=== PATIENT | female | born 1985 | race Caucasian/White ===

== ENCOUNTER 2020-06-26 07:08 | Observation (INO) | payer MEDICAID, OTHER ==
[~2020-06-26] VITALS: Ht 152.4 cm; Wt 78.9 kg
[2020-06-26] MEDS ORDERED: LACTATED RINGERS 1,000 ML IV SCH (07:45)
[2020-06-26] MEDS: TERBUTALINE SULFATE 1MG/ML VIAL SUBCUT PRN ×2 (08:17→08:46)
[2020-06-26 08:32] LABS: CLARITY URINE CLEAR (CLEAR); COLOR URINE YELLOW (YELLOW); KETONES URINE NEGATIVE (NEGATIVE); LEUKOCYTE ESTERASE URINE TRACE (NEGATIVE); NITRITE URINE NEGATIVE (NEGATIVE); OCCULT BLOOD URINE 2+ (NEGATIVE); PH URINE 6.5 (4.5-8.0); PROTEIN URINE TRACE (NEGATIVE); SPECIFIC GRAVITY URINE 1.026 (1.005-1.030)
[2020-06-26] MEDS ORDERED: PREN-182 MT (19:36)
[2020-06-26] MEDS ORDERED: CALC600T12 PO (19:36)
[2020-06-26] MEDS ORDERED: FERR325T6 MT (19:36)
== END 2020-06-26 10:02 | disposition home or self-care (01) ==
LOC: 8 EST A/PP 07:08
PROVIDERS: ADMIT Obstetrics & Gynecology; ATTEND Obstetrics & Gynecology
DX: O62.9 Abnormality of forces of labor, unspecified (principal); O26.853 Spotting complicating pregnancy, third trimester; Z3A.37 37 weeks gestation of pregnancy
CPT/HCPCS: 59025; 81003; 96360; 96361; 96372; G0378; J3105; 99281

== ENCOUNTER 2020-06-26 18:36 | Inpatient (IN) | payer OTHER ==
[~2020-06-26] VITALS: Ht 152.4 cm; Wt 78.9 kg
[2020-06-26] MEDS ORDERED: CALC600T12 PO (19:36)
[2020-06-26] MEDS ORDERED: FERR325T6 MT (19:36)
[2020-06-26] MEDS ORDERED: PREN-182 MT (19:36)
[2020-06-26] MEDS ORDERED: LACTATED RINGERS 1,000 ML IV SCH ×2 (20:15→21:15)
[2020-06-26] MEDS: LACTATED RINGERS 1,000 ML IV SCH ×2 (21:09→21:32)
[2020-06-26 21:24] LABS: CLARITY URINE CLEAR (CLEAR); COLOR URINE YELLOW (YELLOW); KETONES URINE NEGATIVE (NEGATIVE); LEUKOCYTE ESTERASE URINE NEGATIVE (NEGATIVE); NITRITE URINE NEGATIVE (NEGATIVE); OCCULT BLOOD URINE 2+ (NEGATIVE); PH URINE 6.5 (4.5-8.0); PROTEIN URINE NEGATIVE (NEGATIVE); SPECIFIC GRAVITY URINE 1.024 (1.005-1.030)
[2020-06-26 21:25] LABS: BASOPHILS % 0.5 % (0.0-2.0); EOSINOPHILS % 0.5 % (0.0-5.0); HEMATOCRIT. 32.3 % (36.0-48.0); HEMOGLOBIN. 11.1 g/dL (12.0-16.0); LYMPHOCYTES % 20.6 % (20.0-50.0); MEAN CORPUSCULAR HEMOGLOBIN 30.3 pg (28.0-32.0); MEAN CORPUSCULAR VOLUME 88.4 fL (81.0-99.0); MEAN PLATELET VOLUME 10.1 fl (7.4-10.4); MONOCYTES % 6.2 % (2.0-8.0); NEUTROPHILS % 72.2 % (40.0-76.0); PLATELET 168 x1000/uL (130-400); RED BLOOD CELL COUNT 3.66 mill/uL (4.2-5.4)
[2020-06-26 21:34] LABS: INR 0.9; PROTHROMBIN TIME 9.4 sec (9.6-11.0)
[2020-06-26 21:35] LABS: CHLORIDE 110 mEq/L (98-107)
[2020-06-26] MEDS ORDERED: KETOROLAC 30MG/ML VIAL IV NR (23:15)
[2020-06-26] MEDS ORDERED: DIPHENHYDRAMINE 50MG/ML VIAL IV PRN (23:15)
[2020-06-26] MEDS ORDERED: METOCLOPRAMIDE HCL 10MG/2ML VIAL IV NR (23:15)
[2020-06-26] MEDS ORDERED: ACETAMINOPHEN WITH CODEINE 120-12MG/5ML UDC PO PRN (23:15)
[2020-06-26] MEDS ORDERED: CITRIC ACID/SODIUM CITRATE SOLN 30ML UDC PO NR (23:15)
[2020-06-26] MEDS ORDERED: MEPERIDINE HCL/PF 25MG/ML CPJ IV PRN (23:15)
[2020-06-26] MEDS ORDERED: ONDANSETRON HCL 4MG/2ML INJ IV PRN (23:15)
[2020-06-26] MEDS ORDERED: MORPHINE SULFATE/PF 1MG/ML 10ML AMP ONE (23:42)
[2020-06-26] MEDS ORDERED: FENTANYL CITRATE/PF 50MCG/ML 2ML VIAL ONE (23:42)
[2020-06-26] MEDS ORDERED: OXYTOCIN 10 UNITS/ML 1ML ONE (23:43)
[2020-06-26] MEDS ORDERED: CEFAZOLIN SODIUM 1000MG/VIAL ONE (23:43)
[2020-06-26] MEDS ORDERED: SODIUM CHLORIDE 0.9% 10ML VIAL ONE (23:43)
[2020-06-26] MEDS ORDERED: KETOROLAC 60MG/2ML VIAL IM ONE (23:43)
[2020-06-26] MEDS ORDERED: METOCLOPRAMIDE HCL 10MG/2ML VIAL ONE (23:43)
[2020-06-26] MEDS ORDERED: ONDANSETRON HCL 4MG/2ML INJ ONE (23:43)
[2020-06-27] MEDS: LACTATED RINGERS 1,000 ML IV SCH (00:04)
[2020-06-27] MEDS ORDERED: TRIAMCINOLONE ACETONIDE 40MG/ML 1ML VIAL IM NR (01:00)
[2020-06-27] MEDS ORDERED: DIPHENHYDRAMINE 25MG CAPSULE PO PRN (02:15)
[2020-06-27] MEDS ORDERED: BISACODYL 10MG SUPP PR PRN (02:15)
[2020-06-27] MEDS ORDERED: HEMORRHOIDAL SUPP PR PRN (02:15)
[2020-06-27] MEDS ORDERED: IBUPROFEN 400MG TABLET PO PRN (02:15)
[2020-06-27] MEDS ORDERED: LANOLIN OINT 7GM TUBE TOP PRN (02:15)
[2020-06-27] MEDS ORDERED: HYDROCODONE/ACETAMINOPHEN 5/325MG TABLET PO PRN (02:15)
[2020-06-27] MEDS ORDERED: DEXT 5%/LACTATED RINGERS 1,000 ML IV SCH (02:15)
[2020-06-27] MEDS ORDERED: ONDANSETRON HCL 4MG/2ML INJ IV PRN (02:15)
[2020-06-27] MEDS: DEXT 5%/LR + PITOCIN 20UNITS/L 1,000 ML IV SCH ×3 (02:41→14:24)
[2020-06-27 05:55] VITALS: BP 101/58
[2020-06-27] MEDS: CEFAZOLIN 2,000 MG in DEXT 5% WATER 100 ML IV SCH ×3 (06:11→22:09)
[2020-06-27 07:00] LABS: *AMPHETAMINES SCREEN URINE NEGATIVE (NEGATIVE); *BARBITURATES SCREEN URINE NEGATIVE (NEGATIVE); CANNABINOID URINE SCREEN NEGATIVE (NEGATIVE); METHADONE URINE SCREEN NEGATIVE (NEGATIVE); PHENCYCLIDINE URINE SCREEN NEGATIVE (NEGATIVE)
[2020-06-27 07:01] LABS: *BENZODIAZEPINES SCREEN URINE NEGATIVE (NEGATIVE); *COCAINE SCREEN URINE NEGATIVE (NEGATIVE)
[2020-06-27 07:07] LABS: OPIATES URINE SCREEN PRESUMTIVE POSITIVE (NEGATIVE)
[2020-06-27 08:00] VITALS: BP 93/69
[2020-06-27] MEDS ORDERED: TETANUS, DIPHTHERIA, PERTUSSIS VAC/PF 0.5ML (>7YR OLD) IM ONE (08:00)
[2020-06-27] MEDS: PRENATAL VIT/FE FUMARATE/FA TABLET PO SCH (09:45)
[2020-06-27 12:00] VITALS: BP 103/56
[2020-06-27 12:39] LABS: HEMATOCRIT. 32.8 % (36.0-48.0); MEAN CORPUSCULAR HEMOGLOBIN 29.9 pg (28.0-32.0); MEAN PLATELET VOLUME 9.6 fl (7.4-10.4); PLATELET 173 x1000/uL (130-400); RED BLOOD CELL COUNT 3.69 mill/uL (4.2-5.4); RED CELL DISTRIBUTION WIDTH 14.1 % (11.6-14.6)
[2020-06-27 16:00] VITALS: BP 94/50
[2020-06-27 18:03] LABS: PLATELET ESTIMATE NORMAL
[2020-06-27 20:00] VITALS: BP 106/60
[2020-06-27] MEDS ORDERED: LACTATED RINGERS 1,000 ML IV SCH ×2 (20:15)
[2020-06-27] MEDS: DOCUSATE SODIUM 100MG CAPSULE PO SCH (20:39)
[2020-06-27] MEDS: SIMETHICONE 80MG TABLET CHEW PO SCH (20:39)
[2020-06-28] VITALS: BP 105/65
[2020-06-28] MEDS: IBUPROFEN 800MG TABLET PO PRN ×3 (00:09→20:15)
[2020-06-28 04:00] VITALS: BP 111/73
[2020-06-28 08:00] VITALS: BP 108/55
[2020-06-28] MEDS: FERROUS SULFATE 325MG TABLET PO SCH ×2 (13:35→18:18)
[2020-06-28] MEDS: SIMETHICONE 80MG TABLET CHEW PO SCH ×3 (13:36→20:12)
[2020-06-28] MEDS: PRENATAL VIT/FE FUMARATE/FA TABLET PO SCH (13:36)
[2020-06-28 16:00] VITALS: BP 124/73
[2020-06-28 20:00] VITALS: BP 124/72
[2020-06-28] MEDS: DOCUSATE SODIUM 100MG CAPSULE PO SCH (20:12)
[2020-06-29] VITALS: BP 127/70
[2020-06-29 00:35] LABS: HEPATITIS B SURFACE ANTIGEN NEGATIVE
[2020-06-29 04:00] VITALS: BP 120/70
[2020-06-29] MEDS: IBUPROFEN 800MG TABLET PO PRN (04:06)
[2020-06-29] MEDS: PRENATAL VIT/FE FUMARATE/FA TABLET PO SCH (08:24)
[2020-06-29] MEDS: FERROUS SULFATE 325MG TABLET PO SCH (08:24)
[2020-06-29] MEDS: SIMETHICONE 80MG TABLET CHEW PO SCH (08:24)
== END 2020-06-29 12:50 | disposition home or self-care (01) | DRG 540 ==
LOC: OBSVTOIN 18:36 → 8 EST LDRP 18:36 → UNDODISOB 19:38 → 8EST 06-27 04:54
PROVIDERS: ADMIT Obstetrics & Gynecology; ATTEND Obstetrics & Gynecology
PROC: 10D00Z1 Extraction of Products of Conception, Low, Open Approach (ICD-10-PCS; principal; 2020-06-27)
DX: O34.211 Maternal care for low transverse scar from previous cesarean delivery (principal); O60.23X0 Term delivery with preterm labor, third trimester, not applicable or unspecified; Z3A.37 37 weeks gestation of pregnancy; Z37.0 Single live birth
CPT/HCPCS: 36415; 80053; 80305; 80361; 81003; 85025; 86592; 86703; 86762; 86850; 86900; 87340; 88307; 90715; 99281; G0378; J0690; J1885; J2274; J2405; J2590; J2765; J3010; J3301; J7060; J7120; J7121; U0003